=== PATIENT | female | born 1950 | race Caucasian/White ===

== ENCOUNTER 2019-04-18 17:06 | Emergency (ER) | payer OTHER ==
[~2019-04-18] VITALS: Ht 149.9 cm; Wt 61.2 kg
[~2019-04-18 17:06] MED LIST: LAC PO; NITR100C7 PO
[2019-04-18 17:10] VITALS: BP 105/62
--- NOTE | 2019-04-18 17:18 | NUR ---
TO ED 07 VIA W/C.
--- NOTE | 2019-04-18 17:20 | NUR ---
PATIENT PRESENTS TO ED WITH C/O BILATERAL KNEE PAIN X 1 WEEK. +SWELLING. PT UNABLE TO AMBULATE DUE TO SEVERE PAIN. PT STATES PAIN IS 10/10 AT THIS TIME. DENIES ANY PREVIOUS MEDICAL HX. VSS. POSITIONED FOR COMFORT; BEDRAILS UP X1. BED DOWN. ER MD TO EVALUATE PT.
--- NOTE | 2019-04-18 17:26 | NUR ---
ER MD DR QUIGLEY TO ER BED 7
--- NOTE | 2019-04-18 18:00 | NUR ---
Patient appears to be resting comfortably in bed. Vital Signs within normal limits. Pt states pain is 10/10 at this time.
[2019-04-18] MEDS ORDERED: KETOROLAC 30 MG/ML VIAL IM ONE (18:10)
[2019-04-18] MEDS ORDERED: traMADol 50 MG TAB PO ONE (18:40)
[2019-04-18 19:13] VITALS: BP 115/62
--- NOTE | 2019-04-18 19:14 | NUR ---
Patient discharged with v/s stable. Written and verbal after care instructions given and explained. Patient alert, oriented and verbalized understanding of instructions. Taken to car via wheelchair. All questions addressed prior to discharge. ID band removed. Patient advised to follow up with PMD. Rx of Tramadol given. Patient educated on indication of medication including possible reaction and side effects. Opportunity to ask questions provided and answered.
== END 2019-04-18 19:14 | disposition home or self-care (01) ==
LOC: MED 17:06
DX: M17.0 Bilateral primary osteoarthritis of knee (principal); I10 Essential (primary) hypertension; Z79.899 Other long term (current) drug therapy
CPT/HCPCS: 96372; 99283; J1885